=== PATIENT | female | born 1995 | race Caucasian/White ===

== ENCOUNTER 2017-12-11 10:44 | Emergency (ER) | payer OTHER ==
[~2017-12-11] VITALS: Ht 165.1 cm; Wt 136.4 kg
[2017-12-11 10:52] VITALS: BP 128/70; TEMP 97.6
[2017-12-11] MEDS ORDERED: ZOFRAN ODT4 MG PO (12:05)
[2017-12-11 12:50] VITALS: PULSE 84
== END 2017-12-11 12:50 | disposition home or self-care (01) ==
LOC: COL.ER 10:44 → EDSEX 10:45 → COL.ER 12:50
DX: S06.0X0A Concussion without loss of consciousness, initial encounter (principal); F31.9 Bipolar disorder, unspecified; F17.210 Nicotine dependence, cigarettes, uncomplicated; Z90.89 Acquired absence of other organs; W22.8XXA Striking against or struck by other objects, initial encounter
CPT/HCPCS: J2405

== ENCOUNTER 2018-01-05 11:01 | Emergency (ER) | payer OTHER ==
[~2018-01-05] VITALS: Ht 165.1 cm; Wt 131.8 kg
[~2018-01-05 11:01] MED LIST: ZOFRAN ODT4 MG PO
[2018-01-05 11:50] LABS: BASO # 0.1 (0.0-0.2); BASO % 0.6 % (0.0-2.0); EOS # 0.3 (0.0-0.7); EOS % 2.4 % (0-4.0); GRAN # 7.5 (1.4-6.5); GRAN % 68.9 % (42.2-75.2); HEMATOCRIT 39.5 % (35.0-45.0); HEMOGLOBIN 12.9 g/dl (12.0-15.0); LYMPH # 2.5 (1.2-3.4); LYMPH % 23.5 % (20.0-51.0); MEAN CELL VOLUME 89 fl (80.0-95.0); MEAN CORPUSCULAR HEMOGLOBIN 29 pg (26.0-32.0); MEAN CORPUSCULAR HGB CONC 33 g/dl (33.0-37.0); MEAN PLATELET VOLUME 10.2 fl (7.4-10.4); MONO # 0.5 (0.1-0.6); MONO % 4.3 % (1.7-9.3); PLATELET COUNT 441 K/mm3 (130-400); RED BLOOD COUNT 4.46 M/mm3 (4.10-5.30); REDCELL DISTRIBUTION WIDTH-CV 12.5 % (11.5-14.5)
[2018-01-05 12:00] LABS: ALANINE AMINOTRANSFERASE 35 U/L (9-52); ALBUMIN 4.3 gm/dL (3.5-5.0); ALKALINE PHOSPHATASE 53 U/L (50-136); ANION GAP 6 mmol/L (7-16); AST,SGOT 25 U/L (15-37); BILIRUBIN,TOTAL 0.4 mg/dL (0.0-1.0); BLOOD UREA NITROGEN 8 mg/dL (7-17); CALCIUM 9.3 mg/dL (8.4-10.2); CARBON DIOXIDE 25 mmol/L (22-30); CHLORIDE 107 mmol/L (98-107); CREATININE, serum 0.65 mg/dL (0.52-1.25); GLUCOSE 83 mg/dL (74-106); POTASSIUM 4.3 mmol/L (3.4-5.0); SODIUM 139 mmol/L (137-145); TOTAL PROTEIN 7.3 gm/dL (6.4-8.2)
[2018-01-05 12:02] LABS: ACETAMINOPHEN < 10 ug/mL (10-30); ALCOHOL(ethanol),MEDICAL < 10 mg/dL; SALICYLATE < 1.0 mg/dL
[2018-01-05] MEDS ORDERED: BIRTH CONTROL PO (12:08)
[2018-01-05] MEDS ORDERED: XANAX 0.5MG0.5 MG (12:08)
[2018-01-05] MEDS ORDERED: GLUCOPHAGE500 MG/TAB PO (12:09)
[2018-01-05] MEDS ORDERED: LEXAPRO 10MG10 MG PO (12:09)
[2018-01-05] MEDS ORDERED: MINIPRESS 1M1 MG/CAP PO (12:10)
[2018-01-05] MEDS ORDERED: DESYREL DIVIDO150 M1 PO (12:10)
[2018-01-05 12:14] LABS: COLLECTION METHOD CLEAN CATCH
[2018-01-05 12:25] LABS: MUCOUS Present /lpf; PH 5 (5-8); SQUAMOUS EPITHELIAL 0-2 /hpf; URINE APPEARANCE Clear; URINE BACTERIA Rare /hpf; URINE BILIRUBIN Negative (NEGATIVE); URINE BLOOD 2+ (NEGATIVE); URINE COLOR Yellow; URINE GLUCOSE Negative (NEGATIVE); URINE KETONE Trace (NEGATIVE); URINE LEUKOCYTE ESTERASE Negative (NEGATIVE); URINE NITRATE Negative (NEGATIVE); URINE PROTEIN(semi-quant) Negative (NEGATIVE); URINE UROBILINOGEN Negative (NEGATIVE)
[2018-01-05 12:36] LABS: TRICYCLIC ANTIDEPRESS URINE NEGATIVE
[2018-01-05 15:23] VITALS: TEMP 97.9
[2018-01-05 19:50] VITALS: BP 133/78; PULSE 71
== END 2018-01-05 19:45 ==
LOC: COL.ER 11:01
PROVIDERS: Emergency Medicine
DX: R45.851 Suicidal ideations (principal); F32.9 Major depressive disorder, single episode, unspecified; F12.10 Cannabis abuse, uncomplicated; Z79.84 Long term (current) use of oral hypoglycemic drugs

== ENCOUNTER 2018-07-17 19:04 | Observation (INO) | payer SELFPAY ==
[~2018-07-17] VITALS: Ht 167.6 cm; Wt 114.4 kg
[~2018-07-17 19:04] MED LIST changes: +BIRTH CONTROL PO; +DESYREL DIVIDO150 M1 PO; +GLUCOPHAGE500 MG/TAB PO; +LEXAPRO 10MG10 MG PO; +MINIPRESS 1M1 MG/CAP PO; +XANAX 0.5MG0.5 MG
[2018-07-17 19:58] LABS: BASO # 0.1 (0.0-0.2); BASO % 0.4 % (0.0-2.0); EOS # 0.2 (0.0-0.7); EOS % 1.3 % (0-4.0); GRAN # 8.4 (1.4-6.5); GRAN % 70.5 % (42.2-75.2); HEMATOCRIT 42.6 % (35.0-45.0); HEMOGLOBIN 13.7 g/dl (12.0-15.0); LYMPH # 2.7 (1.2-3.4); LYMPH % 23.1 % (20.0-51.0); MEAN CELL VOLUME 88 fl (80.0-95.0); MEAN CORPUSCULAR HEMOGLOBIN 28 pg (26.0-32.0); MEAN CORPUSCULAR HGB CONC 32 g/dl (33.0-37.0); MEAN PLATELET VOLUME 10.8 fl (7.4-10.4); MONO # 0.5 (0.1-0.6); MONO % 4.4 % (1.7-9.3); PLATELET COUNT 442 K/mm3 (130-400); RED BLOOD COUNT 4.82 M/mm3 (4.10-5.30); REDCELL DISTRIBUTION WIDTH-CV 12.5 % (11.5-14.5)
[2018-07-17 20:08] LABS: ALBUMIN 4.2 gm/dL (3.5-5.0); BILIRUBIN,TOTAL 0.3 mg/dL (0.0-1.0); CALCIUM 9.5 mg/dL (8.4-10.2); CREATININE, serum 0.9 (0.52-1.25); TOTAL PROTEIN 7.5 gm/dL (6.4-8.2)
[2018-07-17 20:38] LABS: THYROID STIMULATING HORMONE 0.98 uIU/mL (0.465-4.680)
[2018-07-17 21:17] LABS: COLLECTION METHOD CLEAN CATCH
[2018-07-17 21:42] VITALS: BP 127/72; PULSE 97
[2018-07-17 21:42] LABS: GRANULAR CAST >12 /lpf; HYALINE CAST >12 /lpf; MUCOUS Present /lpf; PH 5 (5-8); URINE APPEARANCE Cloudy; URINE BACTERIA None Seen /hpf; URINE BILIRUBIN Positive (NEGATIVE); URINE BLOOD Negative (NEGATIVE); URINE COLOR Amber; URINE GLUCOSE 2+ (NEGATIVE); URINE KETONE Trace (NEGATIVE); URINE LEUKOCYTE ESTERASE Negative (NEGATIVE); URINE NITRATE Negative (NEGATIVE); URINE PROTEIN(semi-quant) 3+ (NEGATIVE); WHITE BLOOD CELL CAST >12 /lpf
[2018-07-17 22:20] LABS: TRICYCLIC ANTIDEPRESS URINE NEGATIVE
[2018-07-17] MEDS ORDERED: CEPHALEXIN500 M1 PO (22:56)
[2018-07-18] VITALS (13 sets, daily range): BP systolic 83–124; BP diastolic 37–68; PULSE 88–145; TEMP 98.1–98.7
--- NOTE | 2018-07-18 03:32 | NUR ---
Completed assessment, med rec, and PT admission; PT tolerated all cares well and interviewing well; PT A&Ox4, BS active x4, HRR with tachy occurances, LCTA bilaterally, P2R2, no visible edema, no verbalized SI, SOB with AMB although SATing well on RA, weakness and dizziness reported during assessment, 7/10 headache and 4/10 back pain reported during assessment; Personal possession in recliner in room per request; No further assessed or verbalized concerns at time of assessment or exit; PT able to return to a comfortable position in bed with personal items and call light within reach; changed into gown; Hospitalist notified of arrival; RAC IV INT in place; Will continue to monitor. CDA
--- NOTE | 2018-07-18 06:42 | NUR ---
Report given to ROSANA Lakhani; No significant changes or concerns at time of shift change. CDA
--- NOTE | 2018-07-18 09:30 | NUR ---
Patient alert and oriented, answers questions appropriately. See assessment. C/o vertigo, orthostatic blood pressures completed. During c/o vertigo patient able to stand and ambulate to bathroom with no issues. C/o headache 08/09. C/o SOA, oxygen saturations normal, lungs CTA, no s/s respiratory distress noted. Patient states she has been taking "a lot" of her anxiety medications lately, d/t stress. "A lot of things happened this week that were out of my contol, they even involved the dealership general manager. It made my anxiety real bad." Reassured patient that her VS were stable and everything is looking well as far as her current status. Patient request to be able to order a meal and then to be left alone to sleep. No other c/o at this time.
[2018-07-18] MEDS ORDERED: EFFEXOR XR75 MG/CAP PO (11:14)
[2018-07-18] MEDS ORDERED: ATARAX 25MG25 MG/TAB PO (11:20)
--- NOTE | 2018-07-18 12:21 | NUR ---
Patient lives/participates in [facility] outside of [place], [place] and plans to return to [facility] upon her discharge and recovery. Patient is indpendent with daily living activities and has no durable medical equipment usage or anticipated needs, she does not have a primary care physician, her pharmacy is [facility], and she does not have healthcare advance directives completed at this time. Patient's mother (Tatiana Guzman) is supportive of patient as needed however, she does live in [place], [place]. No further needs and social work msw will follow as needed.
[2018-07-18 23:59] LABS: COLLECTION METHOD CLEAN CATCH
[2018-07-19 00:06] LABS: MUCOUS Present /lpf; PH 5 (5-8); SQUAMOUS EPITHELIAL None Seen /hpf; URINE APPEARANCE Clear; URINE BACTERIA None Seen /hpf; URINE BILIRUBIN Negative (NEGATIVE); URINE BLOOD Negative (NEGATIVE); URINE COLOR Straw; URINE GLUCOSE Negative (NEGATIVE); URINE KETONE Negative (NEGATIVE); URINE LEUKOCYTE ESTERASE Negative (NEGATIVE); URINE NITRATE Negative (NEGATIVE); URINE PROTEIN(semi-quant) Negative (NEGATIVE); URINE RBC None Seen /hpf; URINE UROBILINOGEN Negative (NEGATIVE)
--- NOTE | 2018-07-19 02:02 | NUR ---
Patient assessed around 1944. Patient has received APAP twice tonight, and Motrin once tonight for pain to back. Also received PRN Atarax twice for anxiety. Orthostatic BPs around 1999: Lay 116/68 HR 94, sit 147/70 HR 115, Standing 130/66 HR 116. Orthostatic BPs around 0000: Lay 124/67 HR 85, sit 143/87 HR 100, Standing 118/87 HR 115. Patient does complain of dizzyness and lightheadedness when stading, and gait is unsteady. Encouraged to change positions slowly to help with this. Patient received bolus IV fluids at beginning of shift per orders, and is now on LR running at 100 ml/hr per orders. Patient has only gotten up once this shift and had 1000 mls of urine output. Had beend drinking fluids well. Denies burning, pain, and discomfort with urination. Is complaining of back pain, stating that job [employer] told her she as a strained back. Patient reports having hesitancy with urination. Told to call next time she urinates and this nurse would do a bladder scan due to patient reporting only urinatined twice since admission, and voiced understanding. LS CTA. Respirations even and unlabored. HRR. BSA x 4. Peripheral IV to right AC patent, and without redness, warmth, swelling, and pain. Voices no needs or concerns at this time. Resting in bed with eyes closed at this time. Call light is within reach.
--- NOTE | 2018-07-19 05:17 | NUR ---
Patient has not had any furhter complaints of pain or discomfort. LR continues at 100 ml/hr to IV site to right AC. Coban used to area due to positional occlusions, but has resolved since applying coban to area. Continues to report dizzyness and lightheadedness with standing. Denies having the need to urinate at this time, and has not urinated since beginning of shift. Encouraged to try but declined to. Voices no other needs or concerns at this time. Resting in bed with eyes closed at this time. Call light is within reach.
[2018-07-19 05:23] VITALS: BP 102/68; PULSE 65; TEMP 98.4
[2018-07-19 06:14] LABS: HEMATOCRIT 37.4 % (35.0-45.0); HEMOGLOBIN 11.9 g/dl (12.0-15.0); MEAN CELL VOLUME 90 fl (80.0-95.0); MEAN CORPUSCULAR HEMOGLOBIN 29 pg (26.0-32.0); MEAN CORPUSCULAR HGB CONC 32 g/dl (33.0-37.0); PLATELET COUNT 434 K/mm3 (130-400); RED BLOOD COUNT 4.17 M/mm3 (4.10-5.30); REDCELL DISTRIBUTION WIDTH-CV 12.8 % (11.5-14.5)
[2018-07-19 06:24] LABS: CALCIUM 9.1 mg/dL (8.4-10.2); CREATININE, serum 0.54 (0.52-1.25); POTASSIUM 3.9 mmol/L (3.4-5.0)
[2018-07-19 07:30] VITALS: BP 102/64; PULSE 62; TEMP 98.2
[2018-07-19 07:30] LABS: LYMPHOCYTE 31 % (20.0-51.0); NEUTROPHILS 62 % (42.0-75.2); PLATELET ESTIMATE INCREASED (NORMAL)
--- NOTE | 2018-07-19 10:05 | NUR ---
Pt is awake and A/Ox4, sitting up in bed. She does state she has 5/10 back pain, given PRN tylenol for this. Pt is up to restroom, voided 600ml but states it is "hard to pee" and that her pee is "getting darker." Urine noted to be dark yellow. IVF are infusing into right AC without difficulty. Pt is up in room as tolerated.
[2018-07-19 12:11] VITALS: BP 114/43; PULSE 60; TEMP 99
--- NOTE | 2018-07-19 12:24 | NUR ---
Initial visit; Patient thanked Director Statistical Programming for looking in on her, offering comfort and to keep her in Director Statistical Programming's prayers. Director Statistical Programming later delivered some art supplies and a New Testament to keep [place] occupied.
[2018-07-19 16:05] VITALS: BP 131/67; PULSE 92; TEMP 98.3
--- NOTE | 2018-07-19 16:41 | NUR ---
Pt bladder scanned, >790 in bladder. Pt states that she does not feel like she needs to urinate. Pt encouraged to sit on toilet. Pt urinated 800 mL of clear, yellow urine. GERMAINE Irvin notified.
[2018-07-19 19:00] VITALS: BP 113/62; PULSE 73; TEMP 98.7
--- NOTE | 2018-07-19 21:30 | NUR ---
Shift assessment complete. Patient in bed, awake. States, pain in lower back. Prn pain medication given. Denies further needs. Will continue to monitor.
[2018-07-20] VITALS: BP 111/52; PULSE 69; TEMP 98
[2018-07-20 03:39] VITALS: BP 103/66; PULSE 67; TEMP 97.5
--- NOTE | 2018-07-20 05:00 | NUR ---
Patient in bed, awake, slightly drowsy. Denies pain. Denies further needs. Will continue to monitor.
[2018-07-20 08:06] VITALS: BP 118/70; PULSE 75; TEMP 98
[2018-07-20 08:13] LABS: HEMATOCRIT 40.5 % (35.0-45.0); HEMOGLOBIN 12.8 g/dl (12.0-15.0); MEAN CELL VOLUME 90 fl (80.0-95.0); MEAN CORPUSCULAR HEMOGLOBIN 28 pg (26.0-32.0); MEAN CORPUSCULAR HGB CONC 32 g/dl (33.0-37.0); MEAN PLATELET VOLUME 11.2 fl (7.4-10.4); PLATELET COUNT 454 K/mm3 (130-400); REDCELL DISTRIBUTION WIDTH-CV 12.8 % (11.5-14.5)
[2018-07-20 08:33] LABS: CALCIUM 9.1 mg/dL (8.4-10.2); CREATININE, serum 0.53 (0.52-1.25); POTASSIUM 4.1 mmol/L (3.4-5.0)
[2018-07-20 09:01] LABS: BASOPHIL 2 % (0-2); EOSINOPHIL 2 % (0-4); LYMPHOCYTE 55 % (20.0-51.0); NEUTROPHILS 34 % (42.0-75.2); PLATELET ESTIMATE INCREASED (NORMAL)
[2018-07-20] MEDS ORDERED: EFFEXOR-XR150 MG PO (09:21)
[2018-07-20] MEDS ORDERED: FLORINEF ACETA0.1 MG PO (09:22)
--- NOTE | 2018-07-20 09:53 | NUR ---
Assessment completed, alert/oriented, vital signs stable, reporting severe back pain this morning/ ordered to give motrin, they have put in orders for her to discharge home today/ she will be picked up by [facility]. around 1600, will check another set of Orthostatic vital signs before we let her discharge
--- NOTE | 2018-07-20 10:39 | NUR ---
Patient requested to speak with MARTIN. Patient reported to SW that if she needs more than a few follow up appointments, [facility] will send her back to [place] [facility] for continuing care. SW reported that three follow up appointments that are recommneded. Patient reported that she will let [facility] know of those appoitment and see what they say. SW also provided her phone number to patient and reported that if there are any issues, she can contact MARTIN and also MARTIN can speak with the staff at [facility] to find out their policies.
--- NOTE | 2018-07-20 11:09 | NUR ---
Follow-up visit; Patient states she is doing better and thanked Rein[employer] Machine Operator for looking in on her again today and wishing her well.
[2018-07-20 11:43] VITALS: BP 131/75; PULSE 99; TEMP 98.3
[2018-07-20 11:44] VITALS: BP 130/68
--- NOTE | 2018-07-20 15:50 | NUR ---
discharge instructions reviewed with the patient, instructed to follow up with PCP at [facility] and to get referrals for Psych/Gynecology/Urology from her PCP, instructed to stay well hydrated and changed position slowly, discussed new meds and medication changes/ discontinuations, IV and tele removed, patient has called [facility] and they will provide her transportation at 1630, While going over patients discharge papers she informed me that she lost her wallet in the ER waiting room when she came in on 07/18/18, I have checked with ER/ security/ warehouse shipping supervisor to see if a wallet had been turned in over the weekend, there was no wallets turned in to lost and found
== END 2018-07-20 17:00 | disposition home or self-care (01) ==
LOC: COL.ER 19:04 → MEDICAL 07-18 02:23
PROVIDERS: Emergency Medicine; Hospitalist; Physician Assistant; ADMIT Internal Medicine
DX: I95.1 Orthostatic hypotension (principal); F43.10 Post-traumatic stress disorder, unspecified; E87.2 Acidosis; F41.9 Anxiety disorder, unspecified; E28.2 Polycystic ovarian syndrome; Z79.84 Long term (current) use of oral hypoglycemic drugs; Z80.59 Family history of malignant neoplasm of other urinary tract organ
CPT/HCPCS: A4216; G0378; J0696; J1644; J7030; J7120; J8540